=== PATIENT | female | born 1970 | race Caucasian/White ===

== ENCOUNTER 2018-03-10 08:44 | Emergency (ER) | END 2018-03-10 13:48 | disposition home or self-care (01) ==

== ENCOUNTER 2018-05-28 20:06 | Emergency (ER) | payer MEDICAID ==
[~2018-05-28] VITALS: Ht 154.9 cm; Wt 99.7 kg
[~2018-05-28 20:06] MED LIST: CIPR500T4 PO; HYDR-4011 PO; NAPR-985 PO; ONDA4TAB14 PO
[2018-05-28 20:25] VITALS: Ht 154.9 cm; Wt 99.7 kg
[2018-05-29] MEDS ORDERED: IBUP-1542 PO (00:58)
[2018-05-29] MEDS ORDERED: ETHY1TAB PO (01:11)
[2018-05-29] MEDS ORDERED: FLUC150T PO (01:11)
[2018-05-29] MEDS ORDERED: ONDA4TAB14 PO (01:11)
[2018-05-29] MEDS ORDERED: NORE1TAB24 PO (01:11)
[2018-05-29 01:30] VITALS: BP 132/60; PULSE 73; RESP 19
[2018-05-29] MEDS ORDERED: NITROFURANTOIN (SR) 100 MG CAP PO ONE (01:30)
[2018-05-29] MEDS ORDERED: FLUCONAZOLE 200 MG TAB PO ONE (01:30)
--- NOTE | 2018-05-29 03:12 | ERD ---
ER Documentation Chief Complaint Chief Complaint C/O VAGINAL BLEEDING X20 DAYS HPI 48 year-old [female] coming in today with Chief Complaint: Vaginal bleeding History of Present Illness: Patient reporting vaginal bleeding for 20 days. Reports associated symptoms include bloating, dizziness. 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 Review of systems: All systems were reviewed and are negative except for what is indicated in the history of present illness. Past Medical History: Hypertension Social History: [Patient denies tobacco, alcohol, elicit drug use] Medications: [Reviewed as documented Nursing Notes] Allergies: [NKDA] Social Concerns: Denies ROS All systems reviewed and are negative except as per history of present illness. Medications Home Meds Active Scripts Norethindrone-Ethinyl Estrad (Nortrel 1-35 28 Tablet) 1 Each Tablet, 1 EACH PO QID for dysfunctional uterine bleeding for 7 Days, #28 TAB Prov:MERARY THOMAS NP 05/29/18 Ondansetron (Ondansetron Odt) 4 Mg Tab.rapdis, 4 MG PO Q6H PRN for NAUSEA AND/OR VOMITING, #15 TAB Prov:MERARY THOMAS NP 05/29/18 Fluconazole* (Diflucan*) 150 Mg Tablet, 150 MG PO ONCE, #1 TAB take this medication on the morning of 06/02/18; this is the second dose (1st dose given in ER) Prov:MERARY THOMAS NP 05/29/18 Ibuprofen* (Motrin*) 600 Mg Tab, 600 MG PO Q8 for uterine bleeding, #60 TAB Prov:MERARY THMOAS NP 05/29/18 Ciprofloxacin Hcl* (Ciprofloxacin Hcl*) 500 Mg Tablet, 500 MG PO BID for 7 Days, TAB Prov:RAYMUNDO PINEDA PA-C 03/10/18 Ondansetron (Ondansetron Odt) 4 Mg Tab.rapdis, 4 MG PO Q6H PRN for NAUSEA AND/OR VOMITING, #30 TAB Prov:RAYMUNDO PINEDAC 03/10/18 Naproxen* (Naprosyn*) 500 Mg Tablet, 500 MG PO BID PRN for PAIN AND/OR INFLAMMATION, #30 TAB Prov:RAYMUNDO PINEDAC 03/10/18 Hydrocodone/Acetaminophen (Glade 5-325 Tablet) 1 Each Tablet, 1-2 EACH PO Q4, #30 TAB Prov:RAYMUNDO PINEDA PA-C 03/10/18 Discontinued Scripts Ethynodiol D-Ethinyl Estradiol (Ethynodiol-Eth Estra 1Mg-35Mcg) 1 Each Tablet, 1 EACH PO QID for uterine bleeding for 7 Days, #28 TAB Prov:MERARY THOMAS NP 05/29/18 Allergies Allergies: Coded Allergies: No Known Allergy (Unverified , 05/28/18) PMhx/Soc Medical and Surgical Hx: pt denies Surgical Hx History of Surgery: No Anesthesia Reaction: No Hx Neurological Disorder: No Hx Respiratory Disorders: No Hx Cardiac Disorders: Yes (htn) Hx Psychiatric Problems: No Hx Miscellaneous Medical Probl: Yes (Gallstones) Hx Alcohol Use: No Hx Substance Use: No Hx Tobacco Use: No Smoking Status: Never smoker FmHx Family History: diabetes, coronary disease Physical Exam Vitals Vital Signs Date Temp Pulse Resp B/P (MAP) Pulse Ox O2 O2 Flow FiO2 Time Delivery Rate 05/29/18 98.0 73 19 132/60 98 Room Air 01:30 (84) 05/28/18 97.1 86 19 160/73 99 20:25 (102) Physical Exam Const: No acute distress Head: Atraumatic Eyes: Normal Conjunctiva ENT: Normal External Ears, Nose and Mouth. Neck: Full range of motion. No meningismus. Resp: Clear to auscultation bilaterally Cardio: Regular rate and rhythm, no murmurs Abd: Soft, non tender, non distended. Normal bowel sounds. Obese,. 2. Skin: No petechiae or rashes Back: No midline or flank tenderness Ext: No cyanosis, or edema Neur: Awake and alert Psych: Normal Mood and Affect Result Diagram: 05/29/18 0001 Results 24 hrs Laboratory Tests Test 05/28/18 23:50 05/29/18 00:01 Urine Color YELLOW Urine Clarity SLIGHTLY CLOUDY Urine pH 5.0 Urine Specific Daisy 1.025 Urine Ketones NEGATIVE mg/dL Urine Nitrite NEGATIVE mg/dL Urine Bilirubin NEGATIVE mg/dL Urine Urobilinogen NEGATIVE mg/dL Urine Leukocyte Esterase NEGATIVE Sara/ul Urine Microscopic RBC > 182 /HPF Urine Microscopic WBC 14 /HPF Urine Squamous Epithelial Cells FEW /HPF Urine Bacteria FEW /HPF Urine Mucus FEW /HPF Urine Yeast (Budding) FEW /HPF Urine Hemoglobin 3+ mg/dL Urine Glucose NEGATIVE mg/dL Urine Total Protein 1+ mg/dl White Blood Count 7.3 10^3/ul Red Blood Count 4.28 10^6/ul Hemoglobin 12.1 g/dl Hematocrit 37.6 % Mean Corpuscular Volume 87.9 fl Mean Corpuscular Hemoglobin 28.3 pg Mean Corpuscular Hemoglobin Concent 32.2 g/dl Red Cell Distribution Width 12.9 % Platelet Count 339 10^3/UL Mean Platelet Volume 9.0 fl Immature Granulocytes % 0.400 % Neutrophils % 50.1 % Lymphocytes % 41.1 % Monocytes % 6.6 % Eosinophils % 1.4 % Basophils % 0.4 % Nucleated Red Blood Cells % 0.0 /100WBC Immature Granulocytes # 0.030 10^3/ul Neutrophils # 3.7 10^3/ul Lymphocytes # 3.0 10^3/ul Monocytes # 0.5 10^3/ul Eosinophils # 0.1 10^3/ul Basophils # 0.0 10^3/ul Nucleated Red Blood Cells # 0.0 10^3/ul Prothrombin Time 11.8 Sec Prothrombin Time Ratio 0.9 INR International Normalized Ratio 0.86 Activated Partial Thromboplast Time 31.1 Sec Serum HCG, Qualitative NEGATIVE Current Medications Medications Dose Sig/Nga Start Time Status Last (Trade) Ordered Route PRN Stop Time Admin Dose Reason Admin Fluconazole 200 mg ONCE ONCE 05/29/18 DC 05/29/18 (Diflucan) PO 01:30 01:31 05/29/18 01:31 100 mg ONCE ONCE 05/29/18 DC 05/29/18 Nitrofurantoi PO 01:30 01:31 n 05/29/18 01:31 Macrocrystals (Macrobid) Procedures/MDM Patient with complaint of vaginal bleeding ED course includes a thorough examination and history. ED course also includes labs and ultrasound. Low suspicion for life-threatening gynecological emergency or gastric intestinal emergency Otherwise healthy patient presenting with constellation of symptoms likely representing dysfunctional uterine bleeding as characterized by history, phys ical exam findings [ultrasound/lab findings]. Urinalysis showing bacteria and fungus, will order antibiotic and antifungal, will give first dose in ER. Ultrasound showing endometrium within normal limits. No other abnormalities noted on ultrasound. No respiratory distress, otherwise relatively well appearing and nontoxic. Patient educated on diagnoses, prescriptions for 7 day hormonal therapy for this uterine bleeding/patient antibiotics/antifungal, follow-up care return precautions. Strict return precautions given for worsening condition; questions answered discharge. Disposition for discharge with followup in 2-3 days with PCP/clinic . 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 Diagnosis: Primary Impression: Dysfunctional uterine bleeding Additional Impressions: UTI (urinary tract infection) Urinary tract infection type: site unspecified Hematuria presence: without hematuria Qualified Codes: N39.0 - Urinary tract infection, site not specified Yeast UTI Condition: Stable Patient Instructions: Understanding Urinary Tract Infections (UTIs), Dysfunctional Uterine Bleeding Referrals: [facility] YOU HAVE RECEIVED A MEDICAL SCREENING EXAM AND THE RESULTS INDICATE THAT YOU DO NOT HAVE A CONDITION THAT REQUIRES URGENT TREATMENT IN THE EMERGENCY DEPARTMENT. FURTHER EVALUATION AND TREATMENT OF YOUR CONDITION CAN WAIT UNTIL YOU ARE SEEN IN YOUR DOCTORS OFFICE WITHIN THE NEXT 1-2 DAYS. IT IS YOUR RESPONSIBILITY TO MAKE AN APPOINTMENT FOR FOLOW-UP CARE. IF YOU HAVE A PRIMARY DOCTOR --you should call your primary doctor and schedule an appointment IF YOU DO NOT HAVE A PRIMARY DOCTOR YOU CAN CALL OUR PHYSICIAN REFERRAL HOTLINE AT IF YOU CAN NOT AFFORD TO SEE A PHYSICIAN YOU CAN CHOSE FROM THE FOLLOWING [facility] [address] [facility]. [facility] [address] [facility]. [facility] [address] [facility]. [facility] [address]. [facility] [address] [facility]. [facility]. [address] [facility]. [facility] YOU HAVE RECEIVED A MEDICAL SCREENING EXAM AND THE RESULTS INDICATE THAT YOU DO NOT HAVE A CONDITION THAT REQUIRES URGENT TREATMENT IN THE EMERGENCY DEPARTMENT. FURTHER EVALUATION AND TREATMENT OF YOUR CONDITION CAN WAIT UNTIL YOU ARE SEEN IN YOUR DOCTORS OFFICE WITHIN THE NEXT 1-2 DAYS. IT IS YOUR RESPONSIBILITY TO MAKE AN APPOINTMENT FOR FOLOW-UP CARE. IF YOU HAVE A PRIMARY DOCTOR --you should call your primary doctor and schedule and appointment IF YOU DO NOT HAVE A PRIMARY DOCTOR YOU CAN CALL OUR PHYSICIAN REFERRAL HOTLINE AT . IF YOU CAN NOT AFFORD TO SEE A PHYSICIAN YOU CAN CHOSE FROM THE FOLLOWING [facility] INSTITUTIONS: [facility] [address] [place] [address] [facility] [address] [place] [address] [facility] + [facility] [address] [place] [address] [employer] SET UP MECH[place] [address] [facility] [address] [place] [address] OFFICE FAX , [facility] [address] [place], [place] [id number] [facility] [address] [place] [address] DR GOEL, [facility] [address] [facility], [facility] [id number] [address] [address] [place] [address] [facility] [address] [place] [address] [address] [facility] [address] - VELMA BARAJAS [address], [facility] [address] [address] [address] [facility]. [address], [facility] [address] [address] [address] [place], [place] [id number] Additional Instructions: Call your primary care doctor TOMORROW for an appointment during the next 2-3 days.See the doctor sooner or return here if your condition worsens before your appointment time. call your business services tech tomorrow so you can followup within next week. you may need addititonal treatment and evaluation to further evaluate bleeding. MERARY THOMAS NP May 29, 2018 03:11
== END 2018-05-29 01:35 | disposition home or self-care (01) ==
LOC: FTE 20:06
DX: N93.8 Other specified abnormal uterine and vaginal bleeding (principal); B37.49 Other urogenital candidiasis; I10 Essential (primary) hypertension
CPT/HCPCS: 76830; 76856; 81001; 84703; 85025; 85610; 85730; Z7610; 36415

== ENCOUNTER 2018-10-23 20:47 | Emergency (ER) | payer MEDICAID ==
[~2018-10-23] VITALS: Ht 157.5 cm; Wt 101.8 kg
[~2018-10-23 20:47] MED LIST changes: +FLUC150T PO; +IBUP-1542 PO; +NORE1TAB24 PO
[2018-10-23 20:54] VITALS: Ht 157.5 cm; Wt 101.8 kg
--- NOTE | 2018-10-23 22:24 | ERD ---
ER Documentation Chief Complaint Chief Complaint right lower abd pain x 3 days HPI The patient is a 48-year-old female, presenting to the ER because of right lower quadrant abdominal pain for the last 3 days, worse tonight, denies similar symptoms previously, complains of constipation, no aggravating/relieving factor. She denies fever, chills, neck pain, chest pain, dyspnea, dysuria. She does not smoke nor drink, LMP was September 23, 2018 Past medical history: Cholelithiasis, left lung nodule, hypertension Past surgical history: None ROS All systems reviewed and are negative except as per history of present illness. Medications Home Meds Active Scripts Hydrocodone/Acetaminophen ([place] 5-325 Tablet) 1 Each Tablet, 1 TAB PO Q6H PRN for PAIN, #7 TAB Prov:SAMANTHA JOLLEY MD 10/24/18 Norethindrone-Ethinyl Estrad (Nortrel 1-35 28 Tablet) 1 Each Tablet, 1 EACH PO QID for dysfunctional uterine bleeding for 7 Days, #28 TAB Prov:MERARY THOMAS NP 05/29/18 Ondansetron (Ondansetron Odt) 4 Mg Tab.rapdis, 4 MG PO Q6H PRN for NAUSEA AND/OR VOMITING, #15 TAB Prov:MERARY THOMAS NP 05/29/18 Fluconazole* (Diflucan*) 150 Mg Tablet, 150 MG PO ONCE, #1 TAB take this medication on the morning of 06/02/18; this is the second dose (1st dose given in ER) Prov:MERARY THOMAS NP 05/29/18 Ibuprofen* (Motrin*) 600 Mg Tab, 600 MG PO Q8 for uterine bleeding, #60 TAB Prov:MERARY THOMAS NP 05/29/18 Ciprofloxacin Hcl* (Ciprofloxacin Hcl*) 500 Mg Tablet, 500 MG PO BID for 7 Days, TAB Prov:RAYMUNDO PINEDA PA-C 03/10/18 Ondansetron (Ondansetron Odt) 4 Mg Tab.rapdis, 4 MG PO Q6H PRN for NAUSEA AND/OR VOMITING, #30 TAB Prov:RAYMUNDO PINEDA PA-C 03/10/18 Naproxen* (Naprosyn*) 500 Mg Tablet, 500 MG PO BID PRN for PAIN AND/OR INFLAMMATION, #30 TAB Prov:RAYMUNDO PINEDA PA-C 03/10/18 Hydrocodone/Acetaminophen ([place] 5-325 Tablet) 1 Each Tablet, 1-2 EACH PO Q4, #30 TAB Prov:RAYMUNDO PINEDA PA-C 03/10/18 Allergies Allergies: Coded Allergies: No Known Allergy (Unverified , 05/28/18) PMhx/Soc History of Surgery: No Anesthesia Reaction: No Hx Neurological Disorder: No Hx Respiratory Disorders: No Hx Cardiac Disorders: Yes (htn) Hx Psychiatric Problems: No Hx Miscellaneous Medical Probl: Yes (Gallstones) Hx Alcohol Use: No Hx Substance Use: No Hx Tobacco Use: No Physical Exam Vitals Vital Signs Date Temp Pulse Resp B/P (MAP) Pulse Ox O2 O2 Flow FiO2 Time Delivery Rate 10/23/18 97.3 73 18 158/76 9 20:54 (103) Physical Exam Const: No acute distress. Head: Atraumatic. Eyes: Normal Conjunctiva. ENT: Normal External Ears, Nose and Mouth. Neck: Full range of motion. No meningismus. Resp: Clear to auscultation bilaterally. Cardio: Regular rate and rhythm. Abd: Soft, non distended, normal bowel sounds, moderate right lower quadrant tenderness, no rigidity/rebound/CVA tenderness Skin: No petechiae or rashes. Back: No midline or flank tenderness. Ext: No cyanosis, or edema. Neur: Awake and alert. No focal deficit Psych: Normal Mood and Affect. Result Diagram: 10/23/18223210/23/182231 Results 24 hrs Laboratory Tests Test 10/23/18 22:32 10/23/18 22:33 10/23/18 22:46 10/23/18 22:48 Sodium Level 140 mmol/L Potassium Level 3.7 mmol/L Chloride Level 107 mmol/L Carbon Dioxide 22 mmol/L Level Anion Gap 11 Blood Urea Nitrogen 15 mg/dl Creatinine 0.67 mg/dl Est Glomerular > 60 mL/min Filtrat Rate mL/min Glucose Level 89 mg/dl Calcium Level 9.4 mg/dl Total Bilirubin 0.4 mg/dl Direct Bilirubin 0.00 mg/dl Indirect Bilirubin 0.4 mg/dl Aspartate Amino 35 IU/L Transf (AST/SGOT) Alanine 34 IU/L Aminotransferase (A LT/SGPT) Alkaline 71 IU/L Phosphatase Total Protein 7.6 g/dl Albumin 4.0 g/dl Globulin 3.60 g/dl Albumin/Globulin 1.11 Ratio Lipase 146 U/L White Blood Count 7.7 10^3/ul Red Blood Count 4.50 10^6/ul Hemoglobin 12.2 g/dl Hematocrit 38.7 % Mean Corpuscular 86.0 fl Volume Mean Corpuscular 27.1 pg Hemoglobin Mean Corpuscular 31.5 g/dl Hemoglobin Concent Red Cell 15.5 % Distribution Width Platelet Count 332 10^3/UL Mean Platelet 9.1 fl Volume Immature 0.300 % Granulocytes % Neutrophils % 56.0 % Lymphocytes % 35.2 % Monocytes % 6.3 % Eosinophils % 1.8 % Basophils % 0.4 % Nucleated Red Blood 0.0 /100WBC Cells % Immature 0.020 10^3/ul Granulocytes # Neutrophils # 4.3 10^3/ul Lymphocytes # 2.7 10^3/ul Monocytes # 0.5 10^3/ul Eosinophils # 0.1 10^3/ul Basophils # 0.0 10^3/ul Nucleated Red Blood 0.0 10^3/ul Cells # Bedside Urine pH 5.0 (LAB) Bedside Urine Trace Protein (LAB) Bedside Urine Negative Glucose (UA) Bedside Urine Negative Ketones (LAB) Bedside Urine Blood 3+ Bedside Urine Negative Nitrite (LAB) Bedside Urine Negative Leukocyte Esterase (L POC Beta HCG, NEGATIVE Qualitative Current Medications Medications Dose Sig/Nga Start Time Status Last (Trade) Ordered Route PRN Stop Time Admin Dose Reason Admin Morphine 2 mg ONCE STAT 10/23/18 DC 10/23/18 Sulfate IV 22:38 22:56 (morphine) 10/23/18 22:40 Ondansetron 4 mg ONCE STAT 10/23/18 DC 10/23/18 HCl (Zofran IV 22:38 22:56 Inj) 10/23/18 22:40 Ketorolac 30 mg ONCE STAT 10/24/18 DC Tromethamine IV 00:51 (Toradol) 10/24/18 00:52 Procedures/[place] [id number] Radiology Main Line: [phone] DIAGNOSTIC IMAGING REPORT Patient: LEONCIO WALDEN : 1970 Age: 48 Sex: F [id number] DOS: 10/23/18 2238 Ordering MD: SAMANTHA JOLLEY MD Location: E/R Room/Bed: PROCEDURE: CT Abdomen and Pelvis without contrast. CLINICAL INDICATION: Abdominal and pelvic pain. TECHNIQUE: CT scan of the abdomen and pelvis without contrast was performed. Coronal and sagittal reformatted images were obtained from the axial source images. Images were reviewed on a high-resolution PACS workstation. Total exam DLP is 1484 mGy-cm. CTDIvol is 23 mGy. One or more of the following dose reduction techniques were used: Automated exposure control, adjustment of the mA and/or kV according to patient size, use of iterative reconstruction technique. DICOM images are available. COMPARISON: CT scan of the abdomen and pelvis dated 03/10/2018. Pelvic ultrasound dated 05/29/2018. FINDINGS: The lung bases are normal. There is no pleural effusion. The liver is normal in size and attenuation. There is no focal hepatic lesion. The gallbladder and bile ducts are normal. The spleen is normal in size. There is no focal splenic lesion. Both adrenals are normal with no enlargement or mass. The pancreas is unremarkable with no mass or evidence of pancreatitis. There is no renal mass or calculus on either side. There is moderate right hydroureteronephrosis with no obstructing lesion visualized. There is no left hydronephrosis. The abdominal aorta is not dilated. There is calcification in the aorta consistent with atherosclerosis. There is no retroperitoneal lymphadenopathy or mass. There is no pelvic lymphadenopathy or mass. The bladder and distal ureters are normal. The appendix is well seen and appears normal. The bowel and mesentery are normal. There is no free fluid or free gas. The osseous structures are unremarkable with no fracture or lytic lesion. IMPRESSION: 1. Moderate right hydroureteronephrosis with no obstructing lesion visualized. This may indicate recent passage of a calculus. 2. No left hydronephrosis. 3. Atherosclerosis. 4. Normal appendix. 5. Otherwise unremarkable noncontrast CT scan of the abdomen and pelvis. RPTAT: QQ .Brent Gaines MD, MD Date Time Electronically viewed and signed by .Brent Gaines MD, MD on 10/24/2018 00:27 .R/ CC: SAMANTHA JOLLEY MD [phone] MEDICAL MAKING DECISION: The patient is a 48-year-old female, presenting with probable recently passed right kidney stone, acute right hydroureteronephrosis most likely due to recently passed kidney stone. She was treated with morphine 2 mg IV and Toradol 30 mg IV for pain and Zofran IV for nausea with good response, is stable for outpatient follow-up The differential diagnoses considered include but are not limited to cholelithiasis, cholecystitis, choledocholithiasis, cholangitis, pancreatitis, hepatitis, gastritis, peptic ulcer disease, gastric ulcer, appendicitis, cystitis, diverticulitis, partial small bowel obstruction. Departure Diagnosis: Primary Impression: Hydroureteronephrosis Additional Impression: Kidney stone on right side Condition: Good Comments She was discharged with 7 tablets of [place] 5 mg I discussed the findings with the patient. I advised the patient to follow-up with the urologist Dr Christianson in 2-3 days, sooner if needed and return if any concern. Disclaimer: Inadvertent spelling and grammatical errors are likely due to EHR/dictation software use and do not reflect on the overall quality of patient care. Also, please note that the electronic time recorded on this note does not necessarily reflect the actual time of the patient encounter. SAMANTHA JOLLEY MD Oct 23, 2018 22:24
[2018-10-23] MEDS ORDERED: morphine 2 MG INJ IV STA (22:38)
[2018-10-23] MEDS ORDERED: ONDANSETRON 4 MG INJ IV STA (22:38)
[2018-10-24] MEDS ORDERED: KETOROLAC 30 MG INJ IV STA (00:51)
[2018-10-24] MEDS ORDERED: HYDR-4011 PO (00:54)
[2018-10-24 01:15] VITALS: BP 136/65; PULSE 64; RESP 17
== END 2018-10-24 01:16 | disposition home or self-care (01) ==
LOC: E/R 20:47
DX: N13.2 Hydronephrosis with renal and ureteral calculous obstruction (principal); R10.2 Pelvic and perineal pain; I10 Essential (primary) hypertension
CPT/HCPCS: 36415; 74176; 80053; 81003; 81025; 83690; 85025; 96374; 96375; J1885; J2270; J2405; Z7502